=== PATIENT | female | born 1980 | race Caucasian/White ===

== ENCOUNTER 2019-05-20 08:11 | Emergency (ER) | payer SELFPAY ==
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
[2019-05-20 08:31] VITALS: BP 134/85; PULSE 98; RESP 18; TEMP 36.3; O2SAT 100
--- NOTE | 2019-05-20 08:58 | PC.NURSE ---
Pt actually did not want the xray, she wanted something for the pain, when Dr. Grant offered her Tylenol or Ibuprofen she said she already had some of that and what she really wanted was to go to [place] where they have neurology and psychiatry. She was able to get her sock back on and get into the wheelchair. Pt did not want to wait around for discharge paperwork.
== END 2019-05-20 09:01 | disposition home or self-care (01) ==
PROVIDERS: Emergency Provider Emergency Medicine
DX: M79.672 Pain in left foot (principal)
CPT/HCPCS: 99282

== ENCOUNTER 2023-07-28 16:15 | Emergency (ER) | payer SELFPAY ==
[2023-07-28] VITALS (7 sets, daily range): BP systolic 124–149; BP diastolic 72–81; PULSE 75–86; RESP 14–22; TEMP 36.8; O2SAT 99–100; BMI 22.4
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
[2023-07-28] MEDS: NALOXONE 4 MG NASAL SPRAY MISC (18:25)
== END 2023-07-28 18:55 | disposition home or self-care (01) ==
PROVIDERS: Emergency Provider Emergency Medicine
DX: T50.901A Poisoning by unspecified drugs, medicaments and biological substances, accidental (unintentional), initial encounter (principal)
CPT/HCPCS: 99283; A9270